=== PATIENT | female | born 2005 | race Caucasian/White ===

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

== ENCOUNTER 2023-01-14 11:33 | Outpatient (CLI) | payer BC ==
[~2023-01-14 11:33] MED LIST changes: +OXYC-150 PO; +PANT40TA54 PO
[2023-01-14 12:39] LABS: MEAN PLATELET VOLUME 9.3 FL (7.4-10.4)
[2023-01-14 12:41] LABS: BASOPHILS % (AUTO) 0.6 % (0-1); EOSINOPHILS # (AUTO) 0.1 X10'3 (0-0.9); EOSINOPHILS % (AUTO) 1.5 % (0-6); HEMATOCRIT 43.1 % (35.0-45.0); HEMOGLOBIN 14.7 g/dl (12.0-16.0); LYMPHOCYTES # (AUTO) 2.7 X10'3 (1.1-4.8); LYMPHOCYTES % (AUTO) 35.3 % (21-51); MEAN CORPUSCULAR HEMOGLOBIN 30.2 PG (27.0-31.0); MEAN CORPUSCULAR VOLUME 88.7 FL (78-98); MONOCYTES # (AUTO) 0.5 X10'3 (0-0.9); MONOCYTES % (AUTO) 6.1 % (2-12); NEUTROPHILS # (AUTO) 4.3 X10'3 (1.8-7.7); NEUTROPHILS % (AUTO) 56.5 % (42-75); PLATELET COUNT 306 X10'3 (140-440); RED BLOOD COUNT 4.86 X10'6 (4.20-5.60); RED CELL DISTRIBUTION WIDTH 12.7 % (11.5-14.5); WHITE BLOOD COUNT 7.6 X10'3 (4.5-11.0)
[2023-01-14 12:53] LABS: ALANINE AMINOTRANSFERASE 13 U/L (12-78); ALBUMIN 4.2 G/DL (3.4-5.0); ALBUMIN/GLOBULIN RATIO 0.9 (1.1-1.5); ALKALINE PHOSPHATASE 85 IU/L (20-180); ANION GAP 15 (8-16); ASPARTATE AMINO TRANSFERASE 15 U/L (10-37); BILIRUBIN,TOTAL 0.5 MG/DL (0.1-1.0); BLOOD UREA NITROGEN 6 MG/DL (7-18); BUN/CREATININE RATIO 8.7 (10.0-20.0); CALCIUM 9.3 MG/DL (8.5-10.1); CHLORIDE 107 MMOL/L (99-107); CREATININE 0.69 MG/DL (0.40-0.90); GLUCOSE 86 MG/DL (70-104); POTASSIUM 3.3 MMOL/L (3.5-5.1); PREALBUMIN 34.1 MG/DL (19-36); SODIUM 141 MMOL/L (135-145); TOTAL CARBON DIOXIDE 19.4 MMOL/L (24-32); TOTAL PROTEIN 8.8 G/DL (6.4-8.2); eGFR > 90 ML/MIN
== END 2023-01-14 23:59 | disposition home or self-care (01) ==
LOC: LAB 11:33
PROVIDERS: ATTEND Nurse Practitioner Family
DX: K55.1 Chronic vascular disorders of intestine (principal)
CPT/HCPCS: 36415; 80053; 84134; 85025

== ENCOUNTER 2023-02-08 07:10 | Emergency (ER) | payer BC ==
[~2023-02-08] VITALS: Ht 175.3 cm; Wt 54.5 kg
[2023-02-08] MEDS ORDERED: normal saline 1000ML IV soln IVB ONE ×3 (07:50→08:00)
[2023-02-08 07:58] LABS: BASOPHILS % (AUTO) 0.4 % (0-1); EOSINOPHILS # (AUTO) 0.1 X10'3 (0-0.9); EOSINOPHILS % (AUTO) 0.5 % (0-6); HEMATOCRIT 39.1 % (35.0-45.0); HEMOGLOBIN 13.3 g/dl (12.0-16.0); LYMPHOCYTES # (AUTO) 1.8 X10'3 (1.1-4.8); LYMPHOCYTES % (AUTO) 16.6 % (21-51); MEAN CORPUSCULAR HEMOGLOBIN 29.6 PG (27.0-31.0); MEAN CORPUSCULAR HGB CONC 34.1 g/dL (33.0-36.5); MEAN CORPUSCULAR VOLUME 86.8 FL (78-98); MEAN PLATELET VOLUME 8.7 FL (7.4-10.4); MONOCYTES # (AUTO) 0.7 X10'3 (0-0.9); MONOCYTES % (AUTO) 6.8 % (2-12); NEUTROPHILS # (AUTO) 8.2 X10'3 (1.8-7.7); NEUTROPHILS % (AUTO) 75.7 % (42-75); PLATELET COUNT 343 X10'3 (140-440); RED CELL DISTRIBUTION WIDTH 12.8 % (11.5-14.5); WHITE BLOOD COUNT 10.8 X10'3 (4.5-11.0)
[2023-02-08] MEDS ORDERED: metoclopramide 5 mg/ml inj IV ONE (08:00)
[2023-02-08] MEDS ORDERED: diphenhydrAMINE 50 mg/ml inj IV ONE (08:00)
[2023-02-08] MEDS ORDERED: LORazepam 2 mg/ml vial IV ONE (08:00)
[2023-02-08] MEDS: HYDROmorphone inj. 0.5 MG/0.5 ML DISP.SYRIN IV PRN ×2 (08:12→09:18)
[2023-02-08 08:47] LABS: ALANINE AMINOTRANSFERASE 21 U/L (12-78); ALBUMIN 3.8 G/DL (3.4-5.0); ALBUMIN/GLOBULIN RATIO 0.9 (1.1-1.5); ALKALINE PHOSPHATASE 66 IU/L (20-180); ANION GAP 12 (8-16); ASPARTATE AMINO TRANSFERASE 14 U/L (10-37); BILIRUBIN,TOTAL 0.6 MG/DL (0.1-1.0); BLOOD UREA NITROGEN 10 MG/DL (7-18); CALCIUM 9.6 MG/DL (8.5-10.1); CHLORIDE 100 MMOL/L (99-107); GLUCOSE 115 MG/DL (70-104); LIPASE 215 U/L (73-393); POTASSIUM 3.7 MMOL/L (3.5-5.1); SODIUM 137 MMOL/L (135-145); TOTAL CARBON DIOXIDE 24.8 MMOL/L (24-32)
[2023-02-08 08:48] LABS: BUN/CREATININE RATIO 11.9 (10.0-20.0); CREATININE 0.84 MG/DL (0.40-0.90); eGFR 86 ML/MIN
[2023-02-08 10:43] VITALS: BP 132/78
== END 2023-02-08 10:45 | disposition home or self-care (01) ==
LOC: ER 07:11
DX: R11.2 Nausea with vomiting, unspecified (principal); R10.84 Generalized abdominal pain; Z90.49 Acquired absence of other specified parts of digestive tract; Z88.0 Allergy status to penicillin; Z88.8 Allergy status to other drugs, medicaments and biological substances; Z79.899 Other long term (current) drug therapy
CPT/HCPCS: 36415; 80053; 83690; 85025; 96361; 96374; 96375; 96376; 99284; J1170; J1200; J2060; J2765; J7030

== ENCOUNTER 2023-02-11 12:44 | Outpatient (CLI) | payer BC ==
[2023-02-11 13:44] LABS: BASOPHILS # (AUTO) 0.1 X10'3 (0-0.2); EOSINOPHILS # (AUTO) 0.3 X10'3 (0-0.9); EOSINOPHILS % (AUTO) 5.1 % (0-6); HEMATOCRIT 39.1 % (35.0-45.0); HEMOGLOBIN 13.4 g/dl (12.0-16.0); LYMPHOCYTES # (AUTO) 1.6 X10'3 (1.1-4.8); LYMPHOCYTES % (AUTO) 24.7 % (21-51); MEAN CORPUSCULAR HEMOGLOBIN 29.8 PG (27.0-31.0); MEAN CORPUSCULAR HGB CONC 34.2 g/dL (33.0-36.5); MEAN CORPUSCULAR VOLUME 87.1 FL (78-98); MEAN PLATELET VOLUME 8.9 FL (7.4-10.4); MONOCYTES # (AUTO) 1.1 X10'3 (0-0.9); NEUTROPHILS # (AUTO) 3.3 X10'3 (1.8-7.7); NEUTROPHILS % (AUTO) 52.2 % (42-75); PLATELET COUNT 277 X10'3 (140-440); RED BLOOD COUNT 4.49 X10'6 (4.20-5.60); RED CELL DISTRIBUTION WIDTH 12.7 % (11.5-14.5); WHITE BLOOD COUNT 6.3 X10'3 (4.5-11.0)
[2023-02-11 14:01] LABS: ALANINE AMINOTRANSFERASE 54 U/L (12-78); ALBUMIN 3.6 G/DL (3.4-5.0); ALBUMIN/GLOBULIN RATIO 0.9 (1.1-1.5); ALKALINE PHOSPHATASE 83 IU/L (20-180); ANION GAP 10 (8-16); ASPARTATE AMINO TRANSFERASE 45 U/L (10-37); BILIRUBIN,TOTAL 0.5 MG/DL (0.1-1.0); BLOOD UREA NITROGEN 10 MG/DL (7-18); BUN/CREATININE RATIO 14.7 (10.0-20.0); CALCIUM 9.1 MG/DL (8.5-10.1); CHLORIDE 101 MMOL/L (99-107); CREATININE 0.68 MG/DL (0.40-0.90); GLUCOSE 67 MG/DL (70-104); MAGNESIUM 2.4 MG/DL (1.5-2.4); PHOSPHORUS 4.3 MG/DL (2.3-4.5); POTASSIUM 3.9 MMOL/L (3.5-5.1); SODIUM 135 MMOL/L (135-145); TOTAL CARBON DIOXIDE 23.7 MMOL/L (24-32); TOTAL PROTEIN 7.8 G/DL (6.4-8.2); TRIGLYCERIDES 57 MG/DL (20-135); eGFR > 90 ML/MIN
[2023-02-11 14:34] LABS: BANDS% (MANUAL) 1.5 % (0-10); EOSINOPHILS % (MANUAL) 6.5 % (0-6); MONOCYTES % (MANUAL) 14.5 % (2-12); NEUTROPHILS % (MANUAL) 57.5 % (42-75); PLATELET ESTIMATE NORMAL; TOTAL CELLS COUNTED 200
== END 2023-02-11 23:59 | disposition home or self-care (01) ==
LOC: LAB 12:44
PROVIDERS: ATTEND Surgery
DX: I77.4 Celiac artery compression syndrome (principal)
CPT/HCPCS: 36415; 80053; 83735; 84100; 84478; 85007; 85025

== ENCOUNTER 2023-02-15 07:01 | Inpatient (IN) | payer BC ==
[~2023-02-15] VITALS: Ht 175.3 cm; Wt 56.8 kg
[2023-02-15] MEDS ORDERED: normal saline 1000ML IV soln IVB ONE (07:40)
[2023-02-15] MEDS ORDERED: LORazepam 2 mg/ml vial IV ONE (08:00)
[2023-02-15] MEDS ORDERED: metoclopramide 5 mg/ml inj IV ONE (08:00)
[2023-02-15] MEDS ORDERED: HYDROmorphone/PF 0.2 MG/ML SYRINGE IV ONE ×2 (08:30→11:35)
[2023-02-15 08:52] LABS: BASOPHILS % (AUTO) 0.1 % (0-1); EOSINOPHILS % (AUTO) 0 % (0-6); HEMATOCRIT 38.3 % (35.0-45.0); HEMOGLOBIN 12.8 g/dl (12.0-16.0); LYMPHOCYTES # (AUTO) 1.3 X10'3 (1.1-4.8); LYMPHOCYTES % (AUTO) 6.5 % (21-51); MEAN CORPUSCULAR HEMOGLOBIN 28.7 PG (27.0-31.0); MEAN CORPUSCULAR HGB CONC 33.3 g/dL (33.0-36.5); MEAN CORPUSCULAR VOLUME 86.1 FL (78-98); MEAN PLATELET VOLUME 9.7 FL (7.4-10.4); MONOCYTES # (AUTO) 1.6 X10'3 (0-0.9); MONOCYTES % (AUTO) 7.9 % (2-12); NEUTROPHILS # (AUTO) 17.1 X10'3 (1.8-7.7); NEUTROPHILS % (AUTO) 85.5 % (42-75); PLATELET COUNT 232 X10'3 (140-440); RED BLOOD COUNT 4.45 X10'6 (4.20-5.60); RED CELL DISTRIBUTION WIDTH 12.7 % (11.5-14.5)
[2023-02-15 09:00] LABS: ALANINE AMINOTRANSFERASE 21 U/L (12-78); ALBUMIN 3.5 G/DL (3.4-5.0); ALBUMIN/GLOBULIN RATIO 0.8 (1.1-1.5); ALKALINE PHOSPHATASE 81 IU/L (20-180); ANION GAP 12 (8-16); ASPARTATE AMINO TRANSFERASE 16 U/L (10-37); BILIRUBIN,TOTAL 0.9 MG/DL (0.1-1.0); BLOOD UREA NITROGEN 12 MG/DL (7-18); BUN/CREATININE RATIO 20.7 (10.0-20.0); CALCIUM 9.5 MG/DL (8.5-10.1); CHLORIDE 93 MMOL/L (99-107); CREATININE 0.58 MG/DL (0.40-0.90); GLUCOSE 129 MG/DL (70-104); LIPASE 307 U/L (73-393); POTASSIUM 3.1 MMOL/L (3.5-5.1); SODIUM 132 MMOL/L (135-145); eGFR > 90 ML/MIN
[2023-02-15] MEDS ORDERED: potassium Cl 40MEQ/1/2NS 520ml 520 ML IV ONE (09:15)
[2023-02-15] MEDS ORDERED: iohexol 300mg/ml 100ml inj. ONE (09:16)
[2023-02-15] MEDS ORDERED: ondansetron/PF 4mg/2ml inj IV ONE (11:35)
[2023-02-15] MEDS ORDERED: normal saline 1000ml 1,000 ML IV ONE (11:50)
[2023-02-15] MEDS ORDERED: TRAZ-251 PO (12:35)
[2023-02-15] MEDS ORDERED: METO-292 PO (12:35)
[2023-02-15 12:57] LABS: CLARITY,URINE CLEAR (Clear); COLOR,URINE YELLOW (Yellow); GLUCOSE, URINE NEGATIVE (Neg); KETONES,URINE NEGATIVE (Neg); LEUKOCYTE ESTERASE ,URINE NEGATIVE (Neg); NITRITES, URINE NEGATIVE (Neg); OCCULT BLOOD,URINE NEGATIVE (Neg); PH,URINE 8.5 (4.8-8.0); PROTEIN,URINE NEGATIVE (Neg)
[2023-02-15 12:59] LABS: UA COLLECTION TYPE CLN CATCH MIDSTREAM
[2023-02-15] MEDS ORDERED: HYDROmorphone inj. 0.5 MG/0.5 ML DISP.SYRIN IV ONE (13:45)
[2023-02-15] MEDS ORDERED: potassium Cl 40MEQ/1/2NS 520ml 520 ML IV PRN (14:40)
[2023-02-15] MEDS ORDERED: oxyCODONE/APAP 10/325mg tablet PO PRN (14:40)
[2023-02-15] MEDS ORDERED: magnesium 2GM in 50ml NS 50 ML IV PRN (14:40)
[2023-02-15] MEDS ORDERED: acetaminophen 325mg tablet PO PRN ×2 (14:40)
[2023-02-15] MEDS ORDERED: magnesium hydroxide 30ml (MOM) UD suspension PO PRN (14:40)
[2023-02-15] MEDS ORDERED: morphine 2 MG/ML inj. syringe IV PRN (14:40)
[2023-02-15] MEDS ORDERED: potassium Cl 20 mEq SR tablet PO PRN ×2 (14:40)
[2023-02-15] MEDS ORDERED: magnesium 4gm in 100ml NS 100 ML IV PRN (14:40)
[2023-02-15] MEDS ORDERED: magnesium Cl slow-release 64mg tablet PO PRN (14:40)
[2023-02-15] MEDS ORDERED: mag hydrox/Alum hydrox/simeth 30ml oral suspension PO PRN (14:40)
[2023-02-15] MEDS ORDERED: Potassium Cl inj 20 MEQ in normal saline 1000ml 990 ML IV SCH (14:50)
[2023-02-15] MEDS ORDERED: ondansetron 4mg/5ml UD cup PO PRN (14:50)
[2023-02-15] MEDS ORDERED: metoclopramide 10mg/10 ml UD oral solution PO PRN (14:50)
[2023-02-15] MEDS ORDERED: morphine 4 MG/ML inj SYRINge ONE (16:53)
[2023-02-15] MEDS ORDERED: Dextrose 10%-water IV solution 1,000 ML IV PRN (18:00)
[2023-02-15 18:07] LABS: MAGNESIUM 1.5 MG/DL (1.5-2.4); PHOSPHORUS 3.4 MG/DL (2.3-4.5); PREALBUMIN 17.7 MG/DL (19-36)
[2023-02-15] MEDS ORDERED: chromic chloride inj. 10 MCG, ZINC/COPPER/MANGANESE/SELENIUM 1 ML in AA 5%/CALCIUM/LYTE... IV SCH (19:00)
[2023-02-15] MEDS: ondansetron/PF 4mg/2ml inj IV PRN (19:27)
[2023-02-15] MEDS: ciprofloxacin lact 400MG/200ML 200 ML IV SCH (19:28)
[2023-02-15] MEDS: morphine 2 MG/ML inj. syringe IV PRN ×2 (19:28→22:58)
[2023-02-15] MEDS: docusate sod 100mg capsule PO SCH (19:29)
[2023-02-15] MEDS: heparin, porcine 5000 units/ml vial SQ SCH (19:29)
[2023-02-15 21:30] VITALS: BP 121/64
[2023-02-15] MEDS: fat emulsion 20% inj. 100 ML IV SCH (21:41)
[2023-02-15] MEDS: potassium Cl 20mEq in NS 1,000 ML IV SCH (22:19)
[2023-02-15] MEDS: metroNIDAZOLE-Flagyl 500mg/NS 100 ML IV SCH (22:19)
[2023-02-16] MEDS: ondansetron/PF 4mg/2ml inj IV PRN ×3 (00:59→15:50)
[2023-02-16] MEDS: morphine 2 MG/ML inj. syringe IV PRN (02:35)
[2023-02-16] MEDS ORDERED: metoclopramide 5 mg/ml inj IV PRN (03:25)
[2023-02-16] MEDS ORDERED: ondansetron/PF 4mg/2ml inj IV ONE (03:40)
[2023-02-16] MEDS: morphine 4 MG/ML inj SYRINge IV PRN ×5 (04:50→21:05)
[2023-02-16 04:57] LABS: BASOPHILS # (AUTO) 0.1 X10'3 (0-0.2)
[2023-02-16 04:59] LABS: BASOPHILS % (AUTO) 0.5 % (0-1); EOSINOPHILS % (AUTO) 0.1 % (0-6); HEMATOCRIT 30.5 % (35.0-45.0); HEMOGLOBIN 10.4 g/dl (12.0-16.0); LYMPHOCYTES # (AUTO) 1.3 X10'3 (1.1-4.8); LYMPHOCYTES % (AUTO) 6.7 % (21-51); MEAN CORPUSCULAR HEMOGLOBIN 29.2 PG (27.0-31.0); MEAN CORPUSCULAR HGB CONC 34.1 g/dL (33.0-36.5); MEAN CORPUSCULAR VOLUME 85.5 FL (78-98); MEAN PLATELET VOLUME 9.7 FL (7.4-10.4); MONOCYTES % (AUTO) 10.2 % (2-12); NEUTROPHILS # (AUTO) 16.3 X10'3 (1.8-7.7); NEUTROPHILS % (AUTO) 82.5 % (42-75); PLATELET COUNT 163 X10'3 (140-440); RED BLOOD COUNT 3.57 X10'6 (4.20-5.60); RED CELL DISTRIBUTION WIDTH 12.6 % (11.5-14.5); WHITE BLOOD COUNT 19.7 X10'3 (4.5-11.0)
[2023-02-16 05:08] LABS: ALANINE AMINOTRANSFERASE 18 U/L (12-78); ALBUMIN 2.8 G/DL (3.4-5.0); ALBUMIN/GLOBULIN RATIO 0.8 (1.1-1.5); ALKALINE PHOSPHATASE 71 IU/L (20-180); ANION GAP 8 (8-16); ASPARTATE AMINO TRANSFERASE 16 U/L (10-37); BILIRUBIN,TOTAL 0.8 MG/DL (0.1-1.0); BLOOD UREA NITROGEN 10 MG/DL (7-18); BUN/CREATININE RATIO 15.2 (10.0-20.0); CALCIUM 8.5 MG/DL (8.5-10.1); CHLORIDE 101 MMOL/L (99-107); CREATININE 0.66 MG/DL (0.40-0.90); GLUCOSE 119 MG/DL (70-104); MAGNESIUM 1.8 MG/DL (1.5-2.4); PHOSPHORUS 1.8 MG/DL (2.3-4.5); POTASSIUM 3.4 MMOL/L (3.5-5.1); SODIUM 135 MMOL/L (135-145); TOTAL CARBON DIOXIDE 26.1 MMOL/L (24-32); TOTAL PROTEIN 6.5 G/DL (6.4-8.2); eGFR > 90 ML/MIN
[2023-02-16 06:00] VITALS: BP 118/63
[2023-02-16] MEDS: metroNIDAZOLE-Flagyl 500mg/NS 100 ML IV SCH (07:39)
[2023-02-16] MEDS: pantoprazole 40MG/NS 100ML BAG 100 ML IV SCH (07:39)
[2023-02-16] MEDS: potassium Cl 20mEq in NS 1,000 ML IV SCH ×2 (07:57→19:54)
[2023-02-16] MEDS: docusate sod 100mg capsule PO SCH ×2 (08:00→20:00)
[2023-02-16] MEDS: heparin, porcine 5000 units/ml vial SQ SCH ×2 (08:00→20:00)
[2023-02-16 10:00] VITALS: BP 131/81
[2023-02-16] MEDS ORDERED: VANCOMYCIN 1,500MG inj. 1,500 MG in normal saline 500ml IV soln 300 ML IV STA (10:04)
[2023-02-16] MEDS: ciprofloxacin lact 400MG/200ML 200 ML IV SCH (10:11)
[2023-02-16] MEDS ORDERED: VANCOmycin 1250MG/NS 250ml Bag 250 ML IV SCH ×2 (11:00→23:00)
[2023-02-16] MEDS ORDERED: VANCOMYCIN 1,500MG in normal saline IV soln 300 ML IV ONE (11:00)
[2023-02-16] MEDS ORDERED: LORazepam 1 MG tablet PO PRN (13:05)
[2023-02-16] MEDS ORDERED: sodium phosphate inj. 15 MMOL in dextrose 5%-water 250 ML IV ONE (13:35)
[2023-02-16] MEDS: MVI, adult No.4 with vit. K 10 ML in dextrose 5% water 500ml 500 ML IV SCH ×2 (14:15)
[2023-02-16] MEDS: LORazepam 2 mg/ml vial IV PRN (15:50)
[2023-02-16] MEDS: CHROMIC CHLORIDE IV SCH (17:36)
[2023-02-16] MEDS: SELENIUM IV SCH (17:36)
[2023-02-16] MEDS: [UNRECOGNIZED DRUG - OTHER] IV SCH (17:36)
[2023-02-16] MEDS: MANGANESE IV SCH (17:36)
[2023-02-16] MEDS: COPPER IV SCH (17:36)
[2023-02-16] MEDS: ZINC IV SCH (17:36)
[2023-02-16 18:30] VITALS: BP 143/82
[2023-02-16] MEDS ORDERED: chromic chloride inj. 10 MCG, ZINC/COPPER/MANGANESE/SELENIUM 1 ML in AA 5%/CALCIUM/LYTE... IV SCH (20:00)
[2023-02-16] MEDS: fat emulsion 20% inj. 100 ML IV SCH (21:15)
[2023-02-17] MEDS: morphine 4 MG/ML inj SYRINge IV PRN ×5 (01:47→23:58)
[2023-02-17] MEDS: ondansetron/PF 4mg/2ml inj IV PRN ×2 (02:19→12:40)
[2023-02-17 06:00] VITALS: BP 129/69
[2023-02-17] MEDS: LORazepam 2 mg/ml vial IV PRN ×2 (06:17→14:05)
[2023-02-17 07:07] LABS: BASOPHILS % (AUTO) 0.3 % (0-1); EOSINOPHILS # (AUTO) 0.1 X10'3 (0-0.9); EOSINOPHILS % (AUTO) 1.1 % (0-6); HEMATOCRIT 31.3 % (35.0-45.0); HEMOGLOBIN 10.8 g/dl (12.0-16.0); LYMPHOCYTES # (AUTO) 1.8 X10'3 (1.1-4.8); LYMPHOCYTES % (AUTO) 19.3 % (21-51); MEAN CORPUSCULAR HEMOGLOBIN 29.8 PG (27.0-31.0); MEAN CORPUSCULAR HGB CONC 34.5 g/dL (33.0-36.5); MEAN CORPUSCULAR VOLUME 86.4 FL (78-98); MEAN PLATELET VOLUME 10.1 FL (7.4-10.4); MONOCYTES # (AUTO) 1.2 X10'3 (0-0.9); MONOCYTES % (AUTO) 12.6 % (2-12); NEUTROPHILS # (AUTO) 6.1 X10'3 (1.8-7.7); NEUTROPHILS % (AUTO) 66.7 % (42-75); PLATELET COUNT 165 X10'3 (140-440); RED BLOOD COUNT 3.63 X10'6 (4.20-5.60); RED CELL DISTRIBUTION WIDTH 13.1 % (11.5-14.5); WHITE BLOOD COUNT 9.2 X10'3 (4.5-11.0)
[2023-02-17 07:20] LABS: ALANINE AMINOTRANSFERASE 20 U/L (12-78); ALBUMIN 2.8 G/DL (3.4-5.0); ALBUMIN/GLOBULIN RATIO 0.7 (1.1-1.5); ALKALINE PHOSPHATASE 70 IU/L (20-180); ANION GAP 8 (8-16); ASPARTATE AMINO TRANSFERASE 19 U/L (10-37); BILIRUBIN,TOTAL 0.6 MG/DL (0.1-1.0); BLOOD UREA NITROGEN 11 MG/DL (7-18); CALCIUM 8.6 MG/DL (8.5-10.1); CHLORIDE 105 MMOL/L (99-107); CREATININE 0.61 MG/DL (0.40-0.90); GLUCOSE 94 MG/DL (70-104); MAGNESIUM 1.7 MG/DL (1.5-2.4); PHOSPHORUS 3.4 MG/DL (2.3-4.5); POTASSIUM 3.7 MMOL/L (3.5-5.1); SODIUM 138 MMOL/L (135-145); TOTAL PROTEIN 6.6 G/DL (6.4-8.2); eGFR > 90 ML/MIN
[2023-02-17] MEDS: pantoprazole 40MG/NS 100ML BAG 100 ML IV SCH (07:24)
[2023-02-17] MEDS: heparin, porcine 5000 units/ml vial SQ SCH ×2 (07:32→20:00)
[2023-02-17] MEDS: docusate sod 100mg capsule PO SCH (07:32)
[2023-02-17] MEDS ORDERED: diatrozoate meglu/diatrozoate sod (37% iodine) 120ML oral solution ONE (08:00)
[2023-02-17] MEDS ORDERED: diatr meglu/diatrizoate 30ml oral sol.-(3 dose) bottle ONE (08:00)
[2023-02-17] MEDS: proCHLORperazine 10 MG/2 ml inj IV PRN ×2 (09:08→16:55)
[2023-02-17] MEDS: HYDROmorphone inj. 0.5 MG/0.5 ML DISP.SYRIN IV PRN ×3 (09:10→20:27)
[2023-02-17] MEDS ORDERED: ondansetron/PF 4mg/2ml inj ONE (09:34)
[2023-02-17] MEDS ORDERED: ondansetron/PF 4mg/2ml inj IV ONE (09:45)
[2023-02-17 10:00] VITALS: BP 115/67
[2023-02-17] MEDS: ceFAZolin/D5W- 1GM premix 50 ML IV SCH ×3 (12:29→23:58)
[2023-02-17] MEDS ORDERED: non-formulary drug (Ondansetron HCl 1 TAB) PO PRN (13:05)
[2023-02-17] MEDS ORDERED: metoclopramide 10mg tablet PO PRN (13:10)
[2023-02-17] MEDS: MANGANESE IV SCH (14:05)
[2023-02-17] MEDS: [UNRECOGNIZED DRUG - OTHER] IV SCH (14:05)
[2023-02-17] MEDS: SELENIUM IV SCH (14:05)
[2023-02-17] MEDS: COPPER IV SCH (14:05)
[2023-02-17] MEDS: CHROMIC CHLORIDE IV SCH (14:05)
[2023-02-17] MEDS: ZINC IV SCH (14:05)
[2023-02-17] MEDS: potassium Cl 20mEq in NS 1,000 ML IV SCH (16:53)
[2023-02-17 18:00] VITALS: BP 124/61
[2023-02-17] MEDS: fat emulsion 20% inj. 100 ML IV SCH (20:27)
[2023-02-17] MEDS: traZODone 50mg tablet PO SCH (21:00)
[2023-02-17 22:10] VITALS: BP 131/72
[2023-02-17] MEDS ORDERED: VANCOMYCIN LEVEL IV ONE (22:30)
[2023-02-18] MEDS: proCHLORperazine 10 MG/2 ml inj IV PRN ×2 (01:19→22:29)
[2023-02-18] MEDS: LORazepam 2 mg/ml vial IV PRN ×3 (01:20→23:10)
[2023-02-18] MEDS: HYDROmorphone inj. 0.5 MG/0.5 ML DISP.SYRIN IV PRN ×4 (04:21→21:33)
[2023-02-18 04:54] LABS: BASOPHILS % (AUTO) 0.4 % (0-1); EOSINOPHILS # (AUTO) 0.1 X10'3 (0-0.9); EOSINOPHILS % (AUTO) 1.7 % (0-6); HEMATOCRIT 30.5 % (35.0-45.0); HEMOGLOBIN 10.3 g/dl (12.0-16.0); LYMPHOCYTES # (AUTO) 1.8 X10'3 (1.1-4.8); LYMPHOCYTES % (AUTO) 25.9 % (21-51); MEAN CORPUSCULAR HGB CONC 33.6 g/dL (33.0-36.5); MEAN CORPUSCULAR VOLUME 86.3 FL (78-98); MEAN PLATELET VOLUME 9.6 FL (7.4-10.4); NEUTROPHILS # (AUTO) 4.1 X10'3 (1.8-7.7); PLATELET COUNT 191 X10'3 (140-440); RED BLOOD COUNT 3.53 X10'6 (4.20-5.60); RED CELL DISTRIBUTION WIDTH 12.9 % (11.5-14.5)
[2023-02-18 05:05] LABS: ALANINE AMINOTRANSFERASE 23 U/L (12-78); ALBUMIN 2.9 G/DL (3.4-5.0); ALBUMIN/GLOBULIN RATIO 0.8 (1.1-1.5); ALKALINE PHOSPHATASE 67 IU/L (20-180); ANION GAP 9 (8-16); ASPARTATE AMINO TRANSFERASE 14 U/L (10-37); BILIRUBIN,TOTAL 0.6 MG/DL (0.1-1.0); BLOOD UREA NITROGEN 11 MG/DL (7-18); BUN/CREATININE RATIO 20.4 (10.0-20.0); CALCIUM 8.8 MG/DL (8.5-10.1); CHLORIDE 106 MMOL/L (99-107); CREATININE 0.54 MG/DL (0.40-0.90); GLUCOSE 93 MG/DL (70-104); SODIUM 139 MMOL/L (135-145); TOTAL PROTEIN 6.5 G/DL (6.4-8.2); eGFR > 90 ML/MIN
[2023-02-18] MEDS: morphine 4 MG/ML inj SYRINge IV PRN ×3 (07:30→19:32)
[2023-02-18] MEDS: heparin, porcine 5000 units/ml vial SQ SCH ×2 (07:36→21:32)
[2023-02-18] MEDS: ceFAZolin/D5W- 1GM premix 50 ML IV SCH (07:37)
[2023-02-18] MEDS: pantoprazole 40MG/NS 100ML BAG 100 ML IV SCH (09:05)
[2023-02-18] MEDS: [UNRECOGNIZED DRUG - OTHER] IV SCH (09:08)
[2023-02-18] MEDS: MANGANESE IV SCH (09:08)
[2023-02-18] MEDS: CHROMIC CHLORIDE IV SCH (09:08)
[2023-02-18] MEDS: ZINC IV SCH (09:08)
[2023-02-18] MEDS: COPPER IV SCH (09:08)
[2023-02-18] MEDS: SELENIUM IV SCH (09:08)
[2023-02-18 10:00] VITALS: BP 131/81
[2023-02-18] MEDS: cefepime 2g/NS 100ml ADVANTAGE 100 ML IV SCH ×2 (11:30→21:29)
[2023-02-18] MEDS: potassium Cl 20mEq in NS 1,000 ML IV SCH (12:39)
[2023-02-18] MEDS: ondansetron/PF 4mg/2ml inj IV PRN (17:55)
[2023-02-18 18:00] VITALS: BP 120/70
[2023-02-18] MEDS: fat emulsion 20% inj. 100 ML IV SCH (21:18)
[2023-02-18] MEDS: traZODone 50mg tablet PO SCH (21:32)
[2023-02-18 22:00] VITALS: BP 134/84
[2023-02-19] MEDS: morphine 4 MG/ML inj SYRINge IV PRN ×4 (02:51→20:52)
[2023-02-19] MEDS: [UNRECOGNIZED DRUG - OTHER] IV SCH (03:10)
[2023-02-19] MEDS: MANGANESE IV SCH (03:10)
[2023-02-19] MEDS: ZINC IV SCH (03:10)
[2023-02-19] MEDS: CHROMIC CHLORIDE IV SCH (03:10)
[2023-02-19] MEDS: COPPER IV SCH (03:10)
[2023-02-19] MEDS: SELENIUM IV SCH (03:10)
[2023-02-19] MEDS: LORazepam 2 mg/ml vial IV PRN ×2 (06:05→09:57)
[2023-02-19] MEDS: HYDROmorphone inj. 0.5 MG/0.5 ML DISP.SYRIN IV PRN ×4 (06:07→23:32)
[2023-02-19 06:52] VITALS: BP 99/45
[2023-02-19] MEDS: potassium Cl 20mEq in NS 1,000 ML IV SCH (07:54)
[2023-02-19 08:00] LABS: BASOPHILS % (AUTO) 0.6 % (0-1); EOSINOPHILS # (AUTO) 0.2 X10'3 (0-0.9); EOSINOPHILS % (AUTO) 2.3 % (0-6); HEMATOCRIT 35.6 % (35.0-45.0); LYMPHOCYTES # (AUTO) 1.8 X10'3 (1.1-4.8); LYMPHOCYTES % (AUTO) 24.9 % (21-51); MEAN CORPUSCULAR HEMOGLOBIN 29.3 PG (27.0-31.0); MEAN CORPUSCULAR HGB CONC 33.7 g/dL (33.0-36.5); MEAN CORPUSCULAR VOLUME 86.9 FL (78-98); MEAN PLATELET VOLUME 9.3 FL (7.4-10.4); MONOCYTES # (AUTO) 0.9 X10'3 (0-0.9); MONOCYTES % (AUTO) 12.1 % (2-12); NEUTROPHILS # (AUTO) 4.3 X10'3 (1.8-7.7); NEUTROPHILS % (AUTO) 60.1 % (42-75); PLATELET COUNT 243 X10'3 (140-440); RED BLOOD COUNT 4.09 X10'6 (4.20-5.60); WHITE BLOOD COUNT 7.1 X10'3 (4.5-11.0)
[2023-02-19] MEDS: heparin, porcine 5000 units/ml vial SQ SCH ×2 (08:00→20:00)
[2023-02-19 08:19] LABS: ALANINE AMINOTRANSFERASE 26 U/L (12-78); ALBUMIN 3.3 G/DL (3.4-5.0); ALBUMIN/GLOBULIN RATIO 0.7 (1.1-1.5); ALKALINE PHOSPHATASE 86 IU/L (20-180); ANION GAP 13 (8-16); ASPARTATE AMINO TRANSFERASE 18 U/L (10-37); BLOOD UREA NITROGEN 13 MG/DL (7-18); BUN/CREATININE RATIO 24.1 (10.0-20.0); CALCIUM 9.2 MG/DL (8.5-10.1); CHLORIDE 102 MMOL/L (99-107); CREATININE 0.54 MG/DL (0.40-0.90); GLUCOSE 90 MG/DL (70-104); POTASSIUM 4.2 MMOL/L (3.5-5.1); SODIUM 136 MMOL/L (135-145); TOTAL CARBON DIOXIDE 21.2 MMOL/L (24-32); TOTAL PROTEIN 7.8 G/DL (6.4-8.2); eGFR > 90 ML/MIN
[2023-02-19] MEDS: ondansetron/PF 4mg/2ml inj IV PRN ×3 (08:29→23:31)
[2023-02-19] MEDS: MVI, adult No.4 with vit. K 10 ML in dextrose 5% water 500ml 500 ML IV SCH ×2 (08:35)
[2023-02-19] MEDS: cefepime 2g/NS 100ml ADVANTAGE 100 ML IV SCH ×2 (08:36→20:53)
[2023-02-19] MEDS: pantoprazole 40MG/NS 100ML BAG 100 ML IV SCH (08:39)
[2023-02-19 10:00] VITALS: BP 145/91
[2023-02-19] MEDS: proCHLORperazine 10 MG/2 ml inj IV PRN ×2 (12:08→20:52)
[2023-02-19 18:00] VITALS: BP 116/82
[2023-02-19] MEDS: fat emulsion 20% inj. 100 ML IV SCH (20:53)
[2023-02-19] MEDS: traZODone 50mg tablet PO SCH (20:54)
[2023-02-19 22:00] VITALS: BP 109/64
[2023-02-20] MEDS: [UNRECOGNIZED DRUG - OTHER] IV SCH ×2 (01:21→21:40)
[2023-02-20] MEDS: ZINC IV SCH ×2 (01:21→21:40)
[2023-02-20] MEDS: COPPER IV SCH ×2 (01:21→21:40)
[2023-02-20] MEDS: CHROMIC CHLORIDE IV SCH ×2 (01:21→21:40)
[2023-02-20] MEDS: SELENIUM IV SCH ×2 (01:21→21:40)
[2023-02-20] MEDS: MANGANESE IV SCH ×2 (01:21→21:40)
[2023-02-20] MEDS: LORazepam 2 mg/ml vial IV PRN ×4 (01:21→19:33)
[2023-02-20] MEDS: HYDROmorphone inj. 0.5 MG/0.5 ML DISP.SYRIN IV PRN ×3 (05:22→19:46)
[2023-02-20] MEDS: proCHLORperazine 10 MG/2 ml inj IV PRN ×2 (05:22→13:13)
[2023-02-20] MEDS: potassium Cl 20mEq in NS 1,000 ML IV SCH ×2 (05:23→23:54)
[2023-02-20 06:30] VITALS: BP 127/76
[2023-02-20] MEDS: heparin, porcine 5000 units/ml vial SQ SCH ×2 (07:36→20:00)
[2023-02-20] MEDS: pantoprazole 40MG/NS 100ML BAG 100 ML IV SCH (07:45)
[2023-02-20] MEDS: cefepime 2g/NS 100ml ADVANTAGE 100 ML IV SCH ×2 (07:45→21:29)
[2023-02-20] MEDS ORDERED: FLUoxetine 20mg capsule PO SCH (08:00)
[2023-02-20] MEDS: ondansetron/PF 4mg/2ml inj IV PRN ×3 (08:11→21:29)
[2023-02-20] MEDS: morphine 4 MG/ML inj SYRINge IV PRN ×4 (08:11→21:28)
[2023-02-20 09:22] LABS: BASOPHILS % (AUTO) 0.4 % (0-1); EOSINOPHILS # (AUTO) 0.2 X10'3 (0-0.9); EOSINOPHILS % (AUTO) 1.7 % (0-6); HEMATOCRIT 31.9 % (35.0-45.0); HEMOGLOBIN 10.9 g/dl (12.0-16.0); LYMPHOCYTES # (AUTO) 2.1 X10'3 (1.1-4.8); LYMPHOCYTES % (AUTO) 19.7 % (21-51); MEAN CORPUSCULAR HEMOGLOBIN 29.4 PG (27.0-31.0); MEAN CORPUSCULAR HGB CONC 34.2 g/dL (33.0-36.5); MEAN CORPUSCULAR VOLUME 86.1 FL (78-98); MEAN PLATELET VOLUME 8.9 FL (7.4-10.4); MONOCYTES # (AUTO) 1.2 X10'3 (0-0.9); MONOCYTES % (AUTO) 11.7 % (2-12); NEUTROPHILS % (AUTO) 66.5 % (42-75); PLATELET COUNT 265 X10'3 (140-440); RED BLOOD COUNT 3.71 X10'6 (4.20-5.60); RED CELL DISTRIBUTION WIDTH 12.7 % (11.5-14.5); WHITE BLOOD COUNT 10.5 X10'3 (4.5-11.0)
[2023-02-20 09:36] LABS: ALANINE AMINOTRANSFERASE 36 U/L (12-78); ALBUMIN 3.2 G/DL (3.4-5.0); ALBUMIN/GLOBULIN RATIO 0.7 (1.1-1.5); ALKALINE PHOSPHATASE 76 IU/L (20-180); ANION GAP 13 (8-16); ASPARTATE AMINO TRANSFERASE 20 U/L (10-37); BILIRUBIN,TOTAL 1.2 MG/DL (0.1-1.0); BLOOD UREA NITROGEN 15 MG/DL (7-18); BUN/CREATININE RATIO 26.3 (10.0-20.0); CALCIUM 9.1 MG/DL (8.5-10.1); CHLORIDE 103 MMOL/L (99-107); CREATININE 0.57 MG/DL (0.40-0.90); GLUCOSE 103 MG/DL (70-104); POTASSIUM 4.3 MMOL/L (3.5-5.1); SODIUM 137 MMOL/L (135-145); TOTAL CARBON DIOXIDE 21.5 MMOL/L (24-32); TOTAL PROTEIN 7.5 G/DL (6.4-8.2); eGFR > 90 ML/MIN
[2023-02-20 10:00] VITALS: BP 112/76
[2023-02-20] MEDS ORDERED: FLUoxetine 20mg capsule PO ONE (15:00)
[2023-02-20] MEDS: fat emulsion 20% inj. 100 ML IV SCH (19:33)
[2023-02-21] MEDS: LORazepam 2 mg/ml vial IV PRN ×4 (01:52→21:51)
[2023-02-21] MEDS: morphine 4 MG/ML inj SYRINge IV PRN ×3 (01:53→21:57)
[2023-02-21 06:00] VITALS: BP 108/66
[2023-02-21] MEDS: heparin, porcine 5000 units/ml vial SQ SCH ×2 (07:03→20:00)
[2023-02-21] MEDS: potassium Cl 20mEq in NS 1,000 ML IV SCH (07:29)
[2023-02-21] MEDS: HYDROmorphone inj. 0.5 MG/0.5 ML DISP.SYRIN IV PRN ×3 (07:29→19:46)
[2023-02-21] MEDS: pantoprazole 40MG/NS 100ML BAG 100 ML IV SCH (07:33)
[2023-02-21] MEDS: cefepime 2g/NS 100ml ADVANTAGE 100 ML IV SCH ×2 (07:46→19:45)
[2023-02-21] MEDS: FLUoxetine 20mg capsule PO SCH (07:46)
[2023-02-21] MEDS ORDERED: morphine 2 MG/ML inj. syringe IV ONE (09:15)
[2023-02-21] MEDS ORDERED: morphine 4 MG/ML inj SYRINge IV ONE (09:20)
[2023-02-21] MEDS: ondansetron/PF 4mg/2ml inj IV PRN ×2 (09:29→19:54)
[2023-02-21] MEDS: proCHLORperazine 10 MG/2 ml inj IV PRN (12:28)
[2023-02-21] MEDS: [UNRECOGNIZED DRUG - OTHER] IV SCH (14:57)
[2023-02-21] MEDS: MANGANESE IV SCH (14:57)
[2023-02-21] MEDS: ZINC IV SCH (14:57)
[2023-02-21] MEDS: CHROMIC CHLORIDE IV SCH (14:57)
[2023-02-21] MEDS: COPPER IV SCH (14:57)
[2023-02-21] MEDS: SELENIUM IV SCH (14:57)
[2023-02-21 18:00] VITALS: BP 96/55
[2023-02-21] MEDS: fat emulsion 20% inj. 100 ML IV SCH (19:45)
[2023-02-21 22:00] VITALS: BP 109/57
[2023-02-22] MEDS: LORazepam 2 mg/ml vial IV PRN ×2 (05:45→17:42)
[2023-02-22 06:00] VITALS: BP 134/89
[2023-02-22] MEDS: heparin, porcine 5000 units/ml vial SQ SCH ×2 (06:37→20:00)
[2023-02-22] MEDS: pantoprazole 40MG/NS 100ML BAG 100 ML IV SCH ×2 (07:38→19:37)
[2023-02-22] MEDS: FLUoxetine 20mg capsule PO SCH (07:43)
[2023-02-22 09:43] LABS: ALANINE AMINOTRANSFERASE 63 U/L (12-78); ALBUMIN 3.1 G/DL (3.4-5.0); ALBUMIN/GLOBULIN RATIO 0.7 (1.1-1.5); ALKALINE PHOSPHATASE 82 IU/L (20-180); ANION GAP 9 (8-16); ASPARTATE AMINO TRANSFERASE 31 U/L (10-37); BILIRUBIN,TOTAL 0.9 MG/DL (0.1-1.0); BLOOD UREA NITROGEN 14 MG/DL (7-18); BUN/CREATININE RATIO 27.5 (10.0-20.0); CALCIUM 9.1 MG/DL (8.5-10.1); CHLORIDE 104 MMOL/L (99-107); CREATININE 0.51 MG/DL (0.40-0.90); GLUCOSE 97 MG/DL (70-104); PHOSPHORUS 4.1 MG/DL (2.3-4.5); SODIUM 134 MMOL/L (135-145); TOTAL PROTEIN 7.3 G/DL (6.4-8.2); eGFR > 90 ML/MIN
[2023-02-22 09:44] LABS: POTASSIUM 4.5 MMOL/L (3.5-5.1)
[2023-02-22 10:00] VITALS: BP 128/76
[2023-02-22] MEDS: cefepime 2g/NS 100ml ADVANTAGE 100 ML IV SCH ×2 (10:16→19:39)
[2023-02-22] MEDS: HYDROmorphone inj. 0.5 MG/0.5 ML DISP.SYRIN IV PRN (10:16)
[2023-02-22] MEDS: ondansetron/PF 4mg/2ml inj IV PRN ×2 (10:16→20:33)
[2023-02-22 11:25] LABS: PREALBUMIN 25.7 MG/DL (19-36); TRIGLYCERIDES 58 MG/DL (20-135)
[2023-02-22] MEDS: [UNRECOGNIZED DRUG - OTHER] IV SCH (13:22)
[2023-02-22] MEDS: SELENIUM IV SCH (13:22)
[2023-02-22] MEDS: ZINC IV SCH (13:22)
[2023-02-22] MEDS: CHROMIC CHLORIDE IV SCH (13:22)
[2023-02-22] MEDS: COPPER IV SCH (13:22)
[2023-02-22] MEDS: MANGANESE IV SCH (13:22)
[2023-02-22] MEDS: potassium Cl 20mEq in NS 1,000 ML IV SCH (15:54)
[2023-02-22] MEDS: metoclopramide 5 mg/ml inj IV PRN (17:42)
[2023-02-22 18:00] VITALS: BP 118/74
[2023-02-22] MEDS: fat emulsion 20% inj. 100 ML IV SCH (19:36)
[2023-02-22 22:00] VITALS: BP 101/53
[2023-02-22] MEDS: morphine 4 MG/ML inj SYRINge IV PRN (23:33)
[2023-02-23] MEDS: LORazepam 2 mg/ml vial IV PRN ×4 (01:14→23:42)
[2023-02-23 06:00] VITALS: BP 103/58
[2023-02-23] MEDS: metoclopramide 5 mg/ml inj IV PRN ×2 (06:31→19:21)
[2023-02-23] MEDS: pantoprazole 40MG/NS 100ML BAG 100 ML IV SCH ×2 (07:45→20:07)
[2023-02-23] MEDS: cefepime 2g/NS 100ml ADVANTAGE 100 ML IV SCH ×2 (07:47→19:31)
[2023-02-23] MEDS: heparin, porcine 5000 units/ml vial SQ SCH ×2 (07:52→20:00)
[2023-02-23] MEDS: proCHLORperazine 10 MG/2 ml inj IV PRN (09:18)
[2023-02-23 10:00] VITALS: BP 101/63
[2023-02-23] MEDS: MVI, adult No.4 with vit. K 10 ML in dextrose 5% water 500ml 500 ML IV SCH ×2 (10:45)
[2023-02-23] MEDS: COPPER IV SCH (10:45)
[2023-02-23] MEDS: ZINC IV SCH (10:45)
[2023-02-23] MEDS: SELENIUM IV SCH (10:45)
[2023-02-23] MEDS: [UNRECOGNIZED DRUG - OTHER] IV SCH (10:45)
[2023-02-23] MEDS: CHROMIC CHLORIDE IV SCH (10:45)
[2023-02-23] MEDS: MANGANESE IV SCH (10:45)
[2023-02-23] MEDS: morphine 4 MG/ML inj SYRINge IV PRN (11:57)
[2023-02-23] MEDS: potassium Cl 20mEq in NS 1,000 ML IV SCH (12:16)
[2023-02-23] MEDS ORDERED: chromic chloride inj. 10 MCG, ZINC/COPPER/MANGANESE/SELENIUM 1 ML in AA 5%/CALCIUM/LYTE... IV SCH ×3 (15:10→16:00)
[2023-02-23 18:00] VITALS: BP 137/85
[2023-02-23] MEDS: fat emulsion 20% inj. 100 ML IV SCH (19:25)
[2023-02-23 22:00] VITALS: BP 113/65
[2023-02-23] MEDS: ondansetron/PF 4mg/2ml inj IV PRN (23:43)
[2023-02-24] VITALS (8 sets, daily range): BP systolic 100–133; BP diastolic 48–85
[2023-02-24] MEDS: metoclopramide 5 mg/ml inj IV PRN ×2 (05:52→14:29)
[2023-02-24 05:53] LABS: ALANINE AMINOTRANSFERASE 67 U/L (12-78); ALBUMIN 2.8 G/DL (3.4-5.0); ALBUMIN/GLOBULIN RATIO 0.7 (1.1-1.5); ALKALINE PHOSPHATASE 84 IU/L (20-180); ANION GAP 9 (8-16); ASPARTATE AMINO TRANSFERASE 24 U/L (10-37); BILIRUBIN,TOTAL 1.1 MG/DL (0.1-1.0); BLOOD UREA NITROGEN 12 MG/DL (7-18); BUN/CREATININE RATIO 23.5 (10.0-20.0); CALCIUM 8.3 MG/DL (8.5-10.1); CHLORIDE 101 MMOL/L (99-107); CREATININE 0.51 MG/DL (0.40-0.90); GLUCOSE 105 MG/DL (70-104); POTASSIUM 4.1 MMOL/L (3.5-5.1); SODIUM 135 MMOL/L (135-145); TOTAL CARBON DIOXIDE 24.8 MMOL/L (24-32); TOTAL PROTEIN 6.8 G/DL (6.4-8.2); eGFR > 90 ML/MIN
[2023-02-24] MEDS: heparin, porcine 5000 units/ml vial SQ SCH ×2 (09:00→20:00)
[2023-02-24] MEDS: LORazepam 2 mg/ml vial IV PRN ×2 (09:09→20:20)
[2023-02-24] MEDS: pantoprazole 40MG/NS 100ML BAG 100 ML IV SCH ×2 (09:11→20:21)
[2023-02-24] MEDS: cefepime 2g/NS 100ml ADVANTAGE 100 ML IV SCH ×2 (09:24→22:05)
[2023-02-24] MEDS: potassium Cl 20mEq in NS 1,000 ML IV SCH (14:01)
[2023-02-24] MEDS ORDERED: MIDAZolam 1 MG/ML 5ML VIAL ONE (15:36)
[2023-02-24] MEDS ORDERED: fentaNYL/PF 50MCG/1 ML 2ML syringe ONE ×2 (15:36→16:56)
[2023-02-24] MEDS ORDERED: LIDOcaine Viscous 15ml cup ONE (15:36)
[2023-02-24] MEDS ORDERED: diphenhydrAMINE 50 mg/ml inj ONE (15:56)
[2023-02-24] MEDS ORDERED: chromic chloride inj. 10 MCG, ZINC/COPPER/MANGANESE/SELENIUM 1 ML in AA 5%/CALCIUM/LYTE... IV SCH (20:00)
[2023-02-24] MEDS: fat emulsion 20% inj. 100 ML IV SCH (20:21)
[2023-02-25] MEDS: potassium Cl 20mEq in NS 1,000 ML IV SCH (03:54)
[2023-02-25] MEDS: metoclopramide 5 mg/ml inj IV PRN ×2 (04:46→12:32)
[2023-02-25 05:39] LABS: ALANINE AMINOTRANSFERASE 55 U/L (12-78); ALBUMIN 2.8 G/DL (3.4-5.0); ALBUMIN/GLOBULIN RATIO 0.7 (1.1-1.5); ALKALINE PHOSPHATASE 78 IU/L (20-180); ANION GAP 9 (8-16); ASPARTATE AMINO TRANSFERASE 16 U/L (10-37); BILIRUBIN,TOTAL 0.8 MG/DL (0.1-1.0); BLOOD UREA NITROGEN 11 MG/DL (7-18); BUN/CREATININE RATIO 22.4 (10.0-20.0); CALCIUM 8.4 MG/DL (8.5-10.1); CHLORIDE 103 MMOL/L (99-107); CREATININE 0.49 MG/DL (0.40-0.90); GLUCOSE 103 MG/DL (70-104); MAGNESIUM 1.6 MG/DL (1.5-2.4); PHOSPHORUS 3.7 MG/DL (2.3-4.5); POTASSIUM 4.1 MMOL/L (3.5-5.1); SODIUM 137 MMOL/L (135-145); TOTAL CARBON DIOXIDE 25.1 MMOL/L (24-32); TOTAL PROTEIN 6.7 G/DL (6.4-8.2); eGFR > 90 ML/MIN
[2023-02-25] MEDS: heparin, porcine 5000 units/ml vial SQ SCH (08:00)
[2023-02-25] MEDS: pantoprazole 40MG/NS 100ML BAG 100 ML IV SCH (08:19)
[2023-02-25] MEDS: ondansetron/PF 4mg/2ml inj IV PRN (08:19)
[2023-02-25] MEDS: cefepime 2g/NS 100ml ADVANTAGE 100 ML IV SCH (08:19)
[2023-02-25 10:19] VITALS: BP 109/61
== END 2023-02-25 13:25 | disposition home health service (06) | DRG 314 ==
LOC: ER 07:02 → ED HOLD 14:50 → ORTHO 4S 21:38
PROVIDERS: ADMIT Internal Medicine; ATTEND Internal Medicine
PROC: BW211ZZ Computerized Tomography (CT Scan) of Abdomen and Pelvis using Low Osmolar Contrast (ICD-10-PCS; 2023-02-15)
PROC: 02HV33Z Insertion of Infusion Device into Superior Vena Cava, Percutaneous Approach (ICD-10-PCS; principal; 2023-02-23)
PROC: B548ZZA Ultrasonography of Superior Vena Cava, Guidance (ICD-10-PCS; 2023-02-23)
PROC: 0D20XUZ Change Feeding Device in Upper Intestinal Tract, External Approach (ICD-10-PCS; 2023-02-24)
DX: T80.211A Bloodstream infection due to central venous catheter, initial encounter (principal); A41.2 Sepsis due to unspecified staphylococcus; E46 Unspecified protein-calorie malnutrition; K55.1 Chronic vascular disorders of intestine; I77.4 Celiac artery compression syndrome; Z68.1 Body mass index [BMI] 19.9 or less, adult; K31.1 Adult hypertrophic pyloric stenosis; E87.1 Hypo-osmolality and hyponatremia; E44.0 Moderate protein-calorie malnutrition; K94.23 Gastrostomy malfunction; Z20.822 Contact with and (suspected) exposure to COVID-19; F41.9 Anxiety disorder, unspecified; F12.10 Cannabis abuse, uncomplicated; G89.29 Other chronic pain; E87.6 Hypokalemia; B96.5 Pseudomonas (aeruginosa) (mallei) (pseudomallei) as the cause of diseases classified elsewhere; B95.61 Methicillin susceptible Staphylococcus aureus infection as the cause of diseases classified elsewhere; Y83.8 Other surgical procedures as the cause of abnormal reaction of the patient, or of later complication, without mention of misadventure at the time of the procedure; E86.0 Dehydration; K21.9 Gastro-esophageal reflux disease without esophagitis; Z88.8 Allergy status to other drugs, medicaments and biological substances; Z88.0 Allergy status to penicillin; Y92.89 Other specified places as the place of occurrence of the external cause; Z79.899 Other long term (current) drug therapy
CPT/HCPCS: 36410; 36415; 36569; 43762; 71045; 74177; 74240; 76937; 76942; 80053; 81003; 82948; 83605; 83690; 83735; 84100; 84134; 84145; 84478; 85025; 87040; 87070; 87075; 87077; 87081; 87186; 87811; 93306; 99152; 99153; 99285; A4620; A5120; A6209; A6258; A6402; A6449; B4087; C1751; C9113; G0378; J0690; J0692; J0744; J0780; J1170; J1200; J2060; J2250; J2270; J2405; J2765; J3010; J3370; J3480; J3490; J7030; J7040; J7060; Q9963; Q9967